=== PATIENT | female | born 1990 | race Hispanic/Latino ===

== ENCOUNTER 2016-11-30 15:17 | Emergency (ER) | payer OTHER ==
[2016-11-30 15:28] VITALS: RESP 20
[2016-11-30 17:27] LABS: BASO % 0.5 % (0.0-2.0); EOS % 0.6 % (0.0-4.0); HEMATOCRIT 39.8 % (34.0-47.0); LYMPH # 1.1 K/uL (1.0-4.3); LYMPH % 15.5 % (20.0-40.0); MEAN CORPUSCULAR HEMOGLOBIN 30.7 pg (27.0-31.0); MEAN CORPUSCULAR HGB CONC 33.4 g/dL (33.0-37.0); MEAN PLATELET VOLUME 8.8 fl (7.2-11.7); MONO # 0.4 K/uL (0.0-0.8); MONO % 5.7 % (0.0-10.0); NEUT # 5.5 K/uL (1.8-7.0); NEUT % 77.7 % (50.0-75.0); NRBC % 0.1 % (0.0-0.0); RED CELL DISTRIBUTION WIDTH 12.8 % (11.5-14.5)
[2016-11-30 17:36] LABS: ALB/GLOB RATIO 1.2 (1.0-2.1); ALCOHOL SERUM < 10 mg/dl (0-10); ALKALINE PHOSPHATASE 68 U/L (38-126); ALT/SGPT 30 U/L (9-52); AST/SGOT 27 U/L (14-36); BILIRUBIN,TOTAL 0.6 mg/dl (0.2-1.3); BLOOD UREA NITROGEN 13 mg/dl (7-17); CALCIUM 11.2 mg/dL (8.4-10.2); CARBON DIOXIDE 22 mmol/L (22-30); CHLORIDE 105 mmol/L (98-107); GFR AFRICAN-AMERICAN > 60; GLUCOSE,RANDOM 86 mg/dL (65-105); POTASSIUM 4.2 MMOL/L (3.6-5.0); SODIUM 141 mmol/l (132-148)
--- NOTE | 2016-11-30 17:38 | CT ---
PROCEDURE: CT HEAD WITHOUT CONTRAST. HISTORY: left arm numbness, tingling for 5 days COMPARISON: None available. TECHNIQUE: Axial computed tomography images were obtained through the head/brain without intravenous contrast. Radiation dose: Total exam DLP = 750.29 mGy-cm. FINDINGS: HEMORRHAGE: No acute parenchymal, subarachnoid or extra-axial amadeo hemorrhage. BRAIN: No mass effect or edema. No atrophy or chronic microvascular ischemic changes. VENTRICLES: Unremarkable. No hydrocephalus. CALVARIUM: Unremarkable. PARANASAL SINUSES: Frontal sinuses are underpneumatized/ hypoplastic. Remaining visualized paranasal sinuses are well-developed. The visualized paranasal sinuses are well-aerated. No fluid levels seen to suggest acute sinusitis. MASTOID AIR CELLS: Unremarkable as visualized. No inflammatory changes. OTHER FINDINGS: None. IMPRESSION: No acute intracranial hemorrhage.
--- NOTE | 2016-11-30 17:52 | ED PDOC ---
Upper Extremity Pain/Injury Time Seen by Provider: 11/30/16 16:11 Chief Complaint (Nursing): Weakness/Neurological Deficit History Per: Patient (with h/o rheumatoid arthritis who presents for evaluation of numbness, tingling and weakness of LUE and mild clumsiness of the right hand that started 5 days ago. She was seen by Dr. Edmonds today who referred her to the ER for evaluation. Of note is that she had stopped the methotrexate that was prescribed by her ceo and president several months ago. She denies injuries or fall recently. She denies other complaints.) History/Exam Limitations: no limitations Onset/Duration Of Symptoms: Days (5), Gradual Current Symptoms Are (Timing): Still Present Quality: Other Severity: Moderate Past Medical History Reviewed: Historical Data, Nursing Documentation, Vital Signs Vital Signs: Last Vital Signs Temp 97.8 F 11/30/16 15:28 Pulse 75 11/30/16 15:28 Resp 20 11/30/16 15:28 BP 153/94 H 11/30/16 15:28 Pulse Ox 100 11/30/16 15:28 - Medical History PMH: Rheumatoid Arthritis - Surgical History Surgical History: No Surg Hx - Family History Family History: States: No Known Family Hx - Living Arrangements Living Arrangements: With Family - Social History Current smoker - smoking cessation education provided: No Alcohol: None - Allergies Allergies/Adverse Reactions: Allergies Allergy/AdvReac Type Severity Reaction Status Date / Time No Known Allergies Allergy Verified 11/30/16 15:27 Review of Systems ROS Statement: Except As Marked, All Systems Reviewed And Found Negative Constitutional: Negative for: Fever Gastrointestinal: Negative for: Nausea, Vomiting Neurological: Positive for: Weakness, Numbness. Negative for: Incoordination, Change in Speech, Confusion, Seizures, Altered Mental Status, Headache, Dizziness, Other Physical Exam - Reviewed Nursing Documentation Reviewed: Yes Vital Signs Reviewed: Yes - Physical Exam Appears: Positive for: Well, Non-toxic, No Acute Distress Head Exam: Positive for: ATRAUMATIC, NORMAL INSPECTION, NORMOCEPHALIC Skin: Positive for: Normal Color, Warm, DRY Eye Exam: Positive for: EOMI, Normal appearance, PERRL ENT: Positive for: Normal ENT Inspection Neck: Positive for: Normal, Painless ROM Cardiovascular/Chest: Positive for: Regular Rate, Rhythm Respiratory: Positive for: CNT, Normal Breath Sounds Gastrointestinal/Abdominal: Positive for: Normal Exam, Bowel Sounds, Soft Back: Positive for: Normal Inspection Extremity: Positive for: Normal ROM Neurologic/Psych: Positive for: Alert, Oriented, Motor/Sensory Deficits ( numbness/tingling with 4.5/5 hand grasp on the left), Cerebellar Tests, Gait. Negative for: Mood/Affect, Aphasia, Facial Droop - Laboratory Results Result Diagrams: 11/30/16 17:10 11/30/16 17:10 - ECG O2 Sat by Pulse Oximetry: 100 - Radiology X-Ray: Read By Radiologist X-Ray Interpretation: No Acute Disease Medical Decision Making Medical Decision Making: patient made aware of normal CT of head and c-spine. labs are normal as well. Outpatient followup. Disposition - Clinical Impression Clinical Impression: Numbness and tingling in left arm - Patient ED Disposition Is Patient to be Admitted: No Doctor Will See Patient In The: Office Counseled Patient/Family Regarding: Diagnosis, Need For Followup - Disposition Referrals: Jr Nguyen MD [Staff Provider] - Disposition: Routine/Home Disposition Time: 18:26 Condition: STABLE Instructions: Paresthesia (ED) - POA Present On Arrival: None
--- NOTE | 2016-11-30 17:59 | CT ---
CT cervical spine without IV contrast Indication: Left arm numbness, tingling for 5 days Comparison: None available Technique: Axial computed tomography images were obtained of the cervical spine without the use of intravenous contrast. Coronal and sagittal reformatted images were created and reviewed. Radiation dose: Total exam DLP = 260.09 mGy-cm. Findings: Straightening of the normal cervical lordosis may be related to muscle spasm or positioning. There is no evidence of acute fracture or subluxation. Vertebral body heights appear within normal limits. Intervertebral disc spaces are maintained. The prevertebral soft tissues and spinolaminar lines appear intact. The lateral masses are preserved. The dens tip is intact. There is proper alignment of the lateral masses of C1 with the C2 vertebral body. Sub cm scattered lymph nodes throughout the neck, nonspecific. Included portions of the thyroid gland appear unremarkable. Included portions of lung apices appear clear. Impression: Straightening of the normal cervical lordosis may be related to muscle spasm or positioning. No evidence of acute fracture or subluxation.
[2016-11-30 18:38] VITALS: BP 128/76; PULSE 78; TEMP 97.6; O2SAT 98
== END 2016-11-30 18:38 | disposition home or self-care (01) ==
LOC: H.ER 15:17
DX: R20.0 Anesthesia of skin (principal)